=== PATIENT | female | born 1955 | race Caucasian/White ===

== ENCOUNTER 2019-02-23 12:17 | Emergency (ER) | payer BC ==
[~2019-02-23] VITALS: Ht 160 cm; Wt 63.5 kg
[2019-02-23] MEDS ORDERED: Norco 5-325 Ta1 EACH PO ×2 (12:49→13:15)
== END 2019-02-23 13:19 | disposition home or self-care (01) ==
LOC: ER 12:17
DX: S59.202A Unspecified physeal fracture of lower end of radius, left arm, initial encounter for closed fracture (principal); S52.602A Unspecified fracture of lower end of left ulna, initial encounter for closed fracture; W19.XXXA Unspecified fall, initial encounter
CPT/HCPCS: 29105; 73100; 99283-25; A9270-GY

== ENCOUNTER 2023-06-04 07:59 | Day surgery (SDC) | payer MEDICARE, BC ==
[~2023-06-04] VITALS: Ht 160 cm; Wt 60.7 kg
[~2023-06-04 07:59] MED LIST: Norco 5-325 Ta1 EACH PO
[2023-06-04] MEDS ORDERED: ACET500 (08:20)
[2023-06-04] MEDS ORDERED: Vitamin D1000 UNI1 (08:20)
[2023-06-04] MEDS ORDERED: Premarin 225 MG/5 ML (08:20)
[2023-06-04] MEDS ORDERED: ARTIFICIAL TEAR15 M2 (08:21)
[2023-06-04] MEDS ORDERED: SUMA25 (08:21)
[2023-06-04] MEDS ORDERED: META800 (08:21)
[2023-06-04] MEDS ORDERED: IBUP200 (08:21)
[2023-06-04] MEDS ORDERED: MELO7.5 (08:21)
[2023-06-04] MEDS ORDERED: CENTRUM SILVER1 EAC2 (08:21)
[2023-06-04 10:13] VITALS: BP 117/63
== END 2023-06-04 10:12 | disposition home or self-care (01) ==
LOC: ORSCSDS 07:59
PROVIDERS: Internal Medicine Gastroenterology
PROC: 0DJD8ZZ Inspection of Lower Intestinal Tract, Via Natural or Artificial Opening Endoscopic (ICD-10-PCS; principal; 2023-06-04 09:45)
DX: Z12.11 Encounter for screening for malignant neoplasm of colon (principal); K64.8 Other hemorrhoids
CPT/HCPCS: J2704; J7120

== ENCOUNTER → 2025-01-24 | Outpatient (CLI) | payer MEDICARE ==
[~2025-01-24] MED LIST changes: +ACET500; +ARTIFICIAL TEAR15 M2; +CENTRUM SILVER1 EAC2; +IBUP200; +MELO7.5; +META800; +Premarin 225 MG/5 ML; +SUMA25; +Vitamin D1000 UNI1
== END ==
LOC: LAB 09:25 → LAB SHORT 09:25
DX: R35.0 Frequency of micturition (principal)
CPT/HCPCS: 87086; 87102

== ENCOUNTER → 2025-03-01 | Outpatient (CLI) | payer MEDICARE ==
[2025-03-01 08:42] LABS: BASOPHILS ABSOLUTE AUTO 0.04 K/mm3 (0.00-0.23); BASOPHILS PERCENT AUTO 1 % (0-2); EOSINOPHILS ABSOLUTE AUTO 0.17 K/mm3 (0.00-0.68); EOSINOPHILS PERCENT AUTO 3 % (0-6); Hematocrit 38.8 % (33.0-51.0); Hemoglobin 12.5 g/dL (11.5-16.0); IMMATURE GRAN ABSOLUTE AUTO 0.03 K/mm3 (0.00-0.10); IMMATURE GRAN PERCENT AUTO 1 % (0-1); LYMPHOCYTES ABSOLUTE AUTO 1.29 K/mm3 (0.84-5.20); LYMPHOCYTES PERCENT AUTO 22 % (21-46); MONOCYTES ABSOLUTE AUTO 0.96 K/mm3 (0.16-1.47); MONOCYTES PERCENT AUTO 17 % (4-13); Mean Corpuscular HGB 28.8 pg (26.0-34.0); Mean Corpuscular HGB Conc 32.2 g/dL (31.5-36.5); Mean Corpuscular Volume 89 fL (80-100); Mean Platelet Volume 10.4 fL (9.1-12.4); NEUTROPHILS ABSOLUTE AUTO 3.26 K/mm3 (1.96-9.15); NEUTROPHILS PERCENT AUTO 57 % (41-73); Platelet Count 351 K/mm3 (150-400); RDW Coefficient Variation 14.9 % (11.7-14.2); RDW Standard Deviation 49.1 fL (35.1-46.3); Red Blood Cell Count 4.34 M/mm3 (3.80-5.20); White Blood Cell Count 5.75 K/mm3 (4.00-11.30)
[2025-03-01 09:02] LABS: Albumin/Globulin Ratio 0.9 (0.8-1.8); Bilirubin, Total 2.9 mg/dL (0.1-1.0); Bun/Creatinine Ratio 11.5 (12.0-20.0); Calcium, Blood 9.7 mg/dL (8.5-10.1); Creatinine, Blood 0.87 mg/dL (0.40-1.00); Globulin, Blood 4.6 g/dL (2.2-4.0); Potassium, Blood 3.4 mmol/L (3.5-5.5); Thyroid Stimulating Hormone 2.203 uIU/mL (0.360-4.800); Total Protein, Blood 8.6 g/dL (6.4-8.2)
[2025-03-03 19:17] LABS: HEPATITIS A ANTIBODY, IGM Negative (Negative); HEPATITIS B CORE ANTIBODY, IGM Negative (Negative); HEPATITIS B SURFACE ANTIGEN Negative (Negative); HEPATITIS C AB CIA INTERP Negative (Negative); HEPATITIS C ANTIBODY CIA INDEX 0.07 IV
== END | disposition home or self-care (01) ==
LOC: LAB SHORT 08:36 → LAB 08:36
PROVIDERS: Chiropractor
DX: R53.83 Other fatigue (principal); R74.8 Abnormal levels of other serum enzymes; R10.11 Right upper quadrant pain; R82.90 Unspecified abnormal findings in urine; R17 Unspecified jaundice
CPT/HCPCS: 80053; 80074; 82248; 83690; 84443; 85025; 87086

== ENCOUNTER 2025-04-06 00:23 | Emergency (ER) | payer MEDICARE, OTHER ==
[~2025-04-06] VITALS: Ht 160 cm; Wt 59.9 kg
[2025-04-06 01:28] LABS: Albumin, Blood 3.4 g/dL (3.4-5.0); Bilirubin, Total 0.5 mg/dL (0.1-1.0); Bun/Creatinine Ratio 15.3 (12.0-20.0); Creatinine, Blood 0.65 mg/dL (0.40-1.00); Globulin, Blood 3.3 g/dL (2.2-4.0); Potassium, Blood 3.6 mmol/L (3.5-5.5); Total Protein, Blood 6.7 g/dL (6.4-8.2)
[2025-04-06] MEDS ORDERED: FentaNYL Citrate 50 MCG/ML 2 ML Injection IV ONE (01:45)
[2025-04-06] MEDS ORDERED: NS 1,000 ML IV SCH (01:45)
[2025-04-06 02:30] LABS: Hematocrit 33.5 % (33.0-51.0); Hemoglobin 11.5 g/dL (11.5-16.0); Mean Corpuscular HGB 29.4 pg (26.0-34.0); Mean Corpuscular HGB Conc 34.3 g/dL (31.5-36.5); Mean Corpuscular Volume 86 fL (80-100); Mean Platelet Volume 11.5 fL (9.1-12.4); Platelet Count 86 K/mm3 (150-400); RDW Coefficient Variation 12.6 % (11.7-14.2); Red Blood Cell Count 3.91 M/mm3 (3.80-5.20); White Blood Cell Count 7.78 K/mm3 (4.00-11.30)
[2025-04-06 02:34] LABS: BAND PERCENT MAN 6 % (0-8); BASOPHILS PERCENT MAN 0 % (0-2); EOSINOPHILS ABSOLUTE MAN 0.15 K/mm3 (0.00-0.68); EOSINOPHILS PERCENT MAN 2 % (0-6); LYMPHOCYTES % ATYPICAL MANUAL 1 % (0-0); LYMPHOCYTES ABSOLUTE MAN 1.47 K/mm3 (0.84-5.20); LYMPHOCYTES PERCENT MAN 18 % (21-46); METAMYELOCYTE ABSOLUTE MAN 0.07 K/mm3 (0.00-0.00); METAMYELOCYTE PERCENT MAN 1 % (0-0); MONOCYTES ABSOLUTE MAN 1.24 K/mm3 (0.16-1.47); MONOCYTES PERCENT MAN 16 % (4-13); MYELOCYTE ABSOLUTE MAN 0.31 K/mm3 (0.00-0.00); MYELOCYTE PERCENT MAN 4 % (0-0); NEUTROPHILS ABSOLUTE MAN 4.35 K/mm3 (1.96-9.15); OTHER CELL PERCENT MAN 1 % (0-0); PROMYELOCYTE ABSOLUTE MAN 0.07 K/mm3 (0.00-0.00); PROMYELOCYTE PERCENT MAN 1 % (0-0); SEG NEUTROPHILS PERCENT MAN 50 % (41-73); TOTAL CELLS COUNTED 100
[2025-04-06 03:39] VITALS: BP 127/70
[2025-04-06 03:43] LABS: Source, Urine Clean Catch
[2025-04-06 03:52] LABS: Bilirubin, Urine Neg (Neg); Blood, Urine 2+ (Neg); Glucose Qualitative, Urine Neg (Neg); Ketones, Urine Neg (Neg); Leukocyte Esterase, Urine Neg (Neg); Nitrite, Urine Neg (Neg); Protein, Urine Neg (Neg); Urobilinogen, Urine NORM (Normal)
[2025-04-06 04:33] LABS: Appearance, Urine Clear (Clear); Color, Urine Pale Yellow (P-Yellow)
[2025-04-06 04:34] LABS: Bacteria Few /hpf; Red Blood Cells, Urine 0-2 /hpf (0-2); Squamous Epithelial Cells Few /hpf (Few); White Blood Cells, Urine 0-2 /hpf (0-5)
== END 2025-04-06 04:34 | disposition home or self-care (01) ==
LOC: ER 00:23
PROVIDERS: Student in an Organized Health Care Education/Training Program
DX: K59.00 Constipation, unspecified (principal); R14.0 Abdominal distension (gaseous); Z79.899 Other long term (current) drug therapy; Z88.1 Allergy status to other antibiotic agents; Z88.5 Allergy status to narcotic agent
CPT/HCPCS: 74177; 80053; 81001; 83690; 84484; 85025; 93005; 93010; 99284-25; J3010; J7030; Q9967

== ENCOUNTER 2025-10-23 05:41 | Day surgery (SDC) | payer MEDICARE, OTHER ==
[2025-10-23] VITALS (8 sets, daily range): BP systolic 105–119; BP diastolic 45–66
[~2025-10-23] VITALS: Ht 156 cm; Wt 55.0 kg
[~2025-10-23 05:41] MED LIST changes: +ALLEGRA ALLERG180 MG PO; -CENTRUM SILVER1 EAC2; +CENTRUM SILVER1 EAC2 PO; +CREON DR 12,001 EACH PO; -IBUP200; +IBUP200 PO; -META800; +META800 PO; +OMEP20ER PO; +OXYC5 PO; -Premarin 225 MG/5 ML; +Premarin 225 MG/5 ML IM; -SUMA25; +SUMA25 PO; -Vitamin D1000 UNI1; +Vitamin D1000 UNI1 PO
[2025-10-23] MEDS ORDERED: CeFAZolin Sodium 2,000 MG in NS 100 ML IV SCH (06:35)
[2025-10-23] MEDS ORDERED: Dexamethasone Sod Phos 10 MG/ML 1ML VIAL ONE (06:54)
[2025-10-23] MEDS ORDERED: Midazolam HCl 1MG / ML 2ML Vial ONE (06:54)
[2025-10-23] MEDS ORDERED: Ondansetron HCl 2 MG / ML 2ML Vial ONE (06:54)
[2025-10-23] MEDS ORDERED: FentaNYL Citrate 50 MCG/ML 2 ML Injection ONE (06:54)
[2025-10-23] MEDS ORDERED: FentaNYL Citrate 50 MCG/ML 2 ML Injection IV PRN ×2 (07:00→07:05)
[2025-10-23] MEDS ORDERED: Albuterol 2.5 MG/3 ML VIAL INH PRN (07:05)
[2025-10-23] MEDS ORDERED: HydrALAZINE HCl 20 MG / ML 1ML Vial IV PRN (07:05)
[2025-10-23] MEDS ORDERED: ePHEDrine Sulfate 50 MG/ML 1ML Injection IV PRN (07:05)
[2025-10-23] MEDS ORDERED: Ondansetron HCl 2 MG / ML 2ML Vial IV PRN (07:05)
[2025-10-23] MEDS ORDERED: Lidocaine HCL 1% 10 ML MDV ONE (07:17)
[2025-10-23] MEDS ORDERED: Bupivacaine 0.5% Inj 10 ML Vial ONE (07:17)
--- NOTE | 2025-10-23 07:55 | NUR ---
History, Chart, Medications and Allergies reviewed before start of procedure. Patient up to Ambulate independently. Gait steady. Pre-Op teaching done. Pt verbalizes understanding. Patient confirms NPO status and agrees with scheduled surgery. Patient reports completing Chlorhexadine shower X2 prior to admission to hospital. Surgical site prepped with 2% Chlorhexidine cloth wipe. Patient States Post-Procedure ride home has been arranged.
[2025-10-23] MEDS ORDERED: HYDROcodone 5-APAP 325 TAB PO PRN (08:25)
--- NOTE | 2025-10-23 09:28 | NUR ---
DISCHARGE Patient up to Ambulate independently. Gait steady. Discharge instructions reviewed with patient. Patient verbalizes understanding. Copy given to patient to take home. Patient States Post-Procedure ride home has been arranged. Discharged via wheelchair to private car for ride home. PT DENIES PAIN,N/V. REPORTS READY TO GO HOME. DRESSING C/D/I. IMAGING DONE PER MEN'S BASKETBALL COACH.
== END 2025-10-23 23:32 | disposition home or self-care (01) ==
LOC: ORSCMMR 05:41 → ORD 07:30 → ORSCMMR 07:30
PROVIDERS: Surgery
PROC: B543ZZA Ultrasonography of Right Jugular Veins, Guidance (ICD-10-PCS; principal; 2025-10-23 07:30)
PROC: 0JH63WZ Insertion of Totally Implantable Vascular Access Device into Chest Subcutaneous Tissue and Fascia, Percutaneous Approach (ICD-10-PCS; principal; 2025-10-23 07:30)
PROC: 05HM33Z Insertion of Infusion Device into Right Internal Jugular Vein, Percutaneous Approach (ICD-10-PCS; principal; 2025-10-23 07:30)
DX: C7A.8 Other malignant neuroendocrine tumors (principal); K21.9 Gastro-esophageal reflux disease without esophagitis; Z79.899 Other long term (current) drug therapy
CPT/HCPCS: 77001; C1788; J0690; J1100; J1642; J2003; J2250; J2405; J2704; J3010; J7120

== ENCOUNTER → 2025-11-18 | Outpatient (CLI) | payer MEDICARE, OTHER | LOC: LAB SHORT 16:00 → LAB 16:00 | DX: R30.0 Dysuria (principal) | CPT/HCPCS: 87086 ==